=== PATIENT | female | born 1990 | race Caucasian/White ===

== ENCOUNTER 2021-01-21 16:23 | Emergency (ER) | payer MEDICAID, OTHER ==
[~2021-01-21] VITALS: Ht 170.2 cm; Wt 107.5 kg
[~2021-01-21 16:23] MED LIST: ACET-3457 PO; FERR-15 PO
[2021-01-21 17:16] VITALS: BP 127/80
[2021-01-21] MEDS ORDERED: ALUMINUM HYD/MAG/SIMETHICONE 30 ML UDC PO ONE (17:35)
[2021-01-21] MEDS ORDERED: FAMOTIDINE 20 MG TAB PO ONE (17:35)
[2021-01-21 18:04] LABS: BASOPHILS # (AUTO) 0.1 K/uL (0.00-0.22); BASOPHILS % (AUTO) 0.6 % (0.0-2.0); EOSINOPHILS # (AUTO) 0.1 K/uL (0-0.4); HEMATOCRIT 40.8 % (36-48); HEMOGLOBIN 13.8 g/dL (12.0-16.0); LYMPHOCYTES # (AUTO) 2.3 K/uL (2.5-16.5); LYMPHOCYTES % (AUTO) 24.5 % (20.5-51.1); MEAN CORPUSCULAR HEMOGLOBIN 30 pg (27-31); MEAN CORPUSCULAR HGB CONC 34 g/dL (33-37); MEAN CORPUSCULAR VOLUME 88.6 fL (80-94); MONOCYTES # (AUTO) 0.5 K/uL (0.8-1.0); MONOCYTES % (AUTO) 5.4 % (1.7-9.3); NEUTROPHILS # (AUTO) 6.3 K/uL (1.8-7.7); NEUTROPHILS % (AUTO) 68.5 % (42.2-75.2); PLATELET COUNT (AUTO) 231 K/uL (140-450); RED BLOOD CELL COUNT(AUTO) 4.61 MIL/uL (4.20-5.40); RED CELL DISTRIBUTION WIDTH 13.1 % (11.6-13.7); WHITE BLOOD COUNT (AUTO) 9.3 K/uL (4.8-10.8)
[2021-01-21 18:15] LABS: ALBUMIN 3.9 g/dL (3.4-5.0); ANION GAP 13.3 (8-16); CARBON DIOXIDE 26.9 mmol/L (21-32); CREATININE 0.9 mg/dL (0.6-1.3); POTASSIUM 4.2 mmol/L (3.5-5.1); TOTAL BILIRUBIN 0.5 mg/dL (0.0-1.0)
[2021-01-21] MEDS ORDERED: ALUMINUM HYD/MAG/SIMETHICONE 30 ML UDC ONE (18:46)
[2021-01-21] MEDS ORDERED: FAMOTIDINE 20 MG TAB ONE (18:47)
[2021-01-21] MEDS ORDERED: MECL-303 PO (19:05)
[2021-01-21] MEDS ORDERED: FAMO-90 PO (19:05)
--- NOTE | 2021-01-21 19:41 | NUR ---
EKG BEING PERFORMED BY EMT ARTHUR IN TRIAGE ROOM.
--- NOTE | 2021-01-21 19:54 | NUR ---
IV INSERTION NOT CLINICALLY INDICATED PRIOR TO D/C. ERMD AWARE.
[2021-01-21 19:55] VITALS: BP 120/78
--- NOTE | 2021-01-21 19:55 | NUR ---
Patient discharged with v/s stable. Written and verbal after care instructions given and explained. Patient alert, oriented and verbalized understanding of instructions. Ambulatory with steady gait. All questions addressed prior to discharge. ID band removed. Patient advised to follow up with PMD. Rx of ANTIVERT AND PEPCID given. Patient educated on indication of medication including possible reaction and side effects. Opportunity to ask questions provided and answered.
== END 2021-01-21 19:55 | disposition home or self-care (01) ==
LOC: MED 16:23
DX: R42 Dizziness and giddiness (principal); K29.70 Gastritis, unspecified, without bleeding; J45.909 Unspecified asthma, uncomplicated; K21.9 Gastro-esophageal reflux disease without esophagitis; K76.0 Fatty (change of) liver, not elsewhere classified; Z79.899 Other long term (current) drug therapy; Z98.890 Other specified postprocedural states
CPT/HCPCS: 36415; 80053; 81002; 81025; 83690; 85025; 93005; 99284

== ENCOUNTER 2021-03-28 13:14 | Emergency (ER) | payer OTHER ==
[~2021-03-28] VITALS: Ht 170.2 cm; Wt 104.3 kg
[~2021-03-28 13:14] MED LIST changes: +FAMO-90 PO; +MECL-303 PO
[2021-03-28 13:25] VITALS: BP 106/73
--- NOTE | 2021-03-28 13:35 | NUR ---
PT TO AWAIT IN TENT
--- NOTE | 2021-03-28 13:37 | NUR ---
CARIDAD MENDES EXAMINING PT IN TENT
--- NOTE | 2021-03-28 13:49 | NUR ---
PT AMBULATED TO BED
--- NOTE | 2021-03-28 14:33 | NUR ---
30/F PRESENTS TO ED WITH C/O SOB, ABDOMINAL PAIN, PELVIC PAIN AND LEFT LEG PAIN. 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
[2021-03-28 17:09] VITALS: BP 107/58
[2021-03-28] MEDS ORDERED: NAPR-54 PO (18:40)
[2021-03-28] MEDS ORDERED: PRED20TA5 PO (18:40)
--- NOTE | 2021-03-28 18:52 | NUR ---
Patient discharged with v/s stable. Written and verbal after care instructions given and explained. Patient alert, oriented and verbalized understanding of instructions. Ambulatory with steady gait. All questions addressed prior to discharge. ID band removed. Patient advised to follow up with PMD. Rx of NAPROXEN AND PREDNISONE given. Patient educated on indication of medication including possible reaction and side effects. Opportunity to ask questions provided and answered.
== END 2021-03-28 18:52 | disposition home or self-care (01) ==
LOC: MED 13:14
DX: J45.909 Unspecified asthma, uncomplicated (principal); I83.92 Asymptomatic varicose veins of left lower extremity; K21.9 Gastro-esophageal reflux disease without esophagitis; Z79.899 Other long term (current) drug therapy
CPT/HCPCS: 36415; 71045; 81002; 81025; 84702; 93971; 99285; Q0092

== ENCOUNTER 2022-01-21 23:19 | Emergency (ER) | payer OTHER ==
[~2022-01-21] VITALS: Ht 170.2 cm; Wt 106.6 kg
[~2022-01-21 23:19] MED LIST changes: +NAPR-54 PO; +PRED20TA5 PO
[2022-01-21 23:38] VITALS: BP 131/77
--- NOTE | 2022-01-21 23:44 | NUR ---
TO LOBBY FOLLOWING TRIAGE
--- NOTE | 2022-01-22 01:28 | NUR ---
pt ambulated to bed #6
--- NOTE | 2022-01-22 01:51 | NUR ---
31 Y/O F BIB SELF FOR R INGROWN TOENAIL ON BIG TOE X 4 DAYS. PT STATES REDNESS, SWELLING, WARMNESS, PUS AND BLOOD BUT DENIES N/F/V/D/ CHEST PAIN/ COUGH. PT IS AMBULATORY BUT TRIES NOT TO PUT PRESSURE ON RT FOOT. PT TOOK NO PAIN MEDS. LMP 12/30/21 PMH: INFLAMED LIVER, ENLARGED HEART RX:NONE
--- NOTE | 2022-01-22 02:21 | NUR ---
DR. LARSEN AT BEDSIDE FOR MSE
[2022-01-22] MEDS ORDERED: LIDOCAINE MPF 1% 10 MG/ML VIAL INJ ONE (02:40)
--- NOTE | 2022-01-22 03:02 | NUR ---
Dr. Almodovar examining patient.
[2022-01-22] MEDS ORDERED: CEPH-588 PO (03:14)
[2022-01-22 03:25] VITALS: BP 125/71
--- NOTE | 2022-01-22 03:25 | NUR ---
Patient discharged with v/s stable. Written and verbal after care instructions given and explained. Patient alert, oriented and verbalized understanding of instructions. Ambulatory with steady gait. All questions addressed prior to discharge. ID band removed. Patient advised to follow up with PMD. Rx of KEFLEX given. Opportunity to ask questions provided and answered.
--- NOTE | 2022-01-22 03:55 | NUR ---
The patient's care was reviewed and supervised by Crystal Hendrickson RN.
== END 2022-01-22 03:25 | disposition home or self-care (01) ==
LOC: MED 23:19
DX: L03.032 Cellulitis of left toe (principal); J45.909 Unspecified asthma, uncomplicated; K21.9 Gastro-esophageal reflux disease without esophagitis; Z98.890 Other specified postprocedural states
CPT/HCPCS: 11730; 99285; J2001